=== PATIENT | female | born 1970 | race Caucasian/White ===

== ENCOUNTER 2018-08-20 17:40 | Emergency (ER) | payer MEDICAID ==
[~2018-08-20] VITALS: Ht 160 cm; Wt 61.2 kg
[2018-08-20] MEDS ORDERED: CARV6.25 PO (17:52)
[2018-08-20] MEDS ORDERED: SPIR25TA6 PO (17:52)
[2018-08-20] MEDS ORDERED: VALS40TA4 PO (17:52)
[2018-08-20] MEDS ORDERED: FURO-152 PO (17:52)
--- NOTE | 2018-08-20 18:53 | NUR ---
Patient discharged to home in stable conditon. Written and verbal after care instructions given. Patient verbalizes understanding of instructions. ALL BELONGINGS W/ PT. PT SELF-AMBULATED W/O DIFFICULTY.
[2018-08-20 18:54] VITALS: BP 112/70
== END 2018-08-20 18:55 | disposition home or self-care (01) ==
LOC: ER 17:46
DX: I50.9 Heart failure, unspecified (principal); Z88.0 Allergy status to penicillin; Z79.899 Other long term (current) drug therapy
CPT/HCPCS: A4663